=== PATIENT | male | born 1990 ===

== ENCOUNTER 2016-09-18 13:42 | Emergency (ER) | payer OTHER ==
[2016-09-18 14:01] VITALS: BP 106/62
--- NOTE | 2016-09-18 14:12 | UC ---
Respiratory Complaint HPI - HPI Summary HPI Summary: cough x 2 weeks with green sputum chest congestion, no nasal congestion , no pnd no fever, no chills, + wheezing , - History of Current Complaint Chief Complaint: UCRespiratory Stated Complaint: SEVERE COUGH Time Seen by Provider: 09/18/16 14:02 Hx Obtained From: Patient Onset/Duration: Gradual Onset, Lasting Weeks - 2, Still Present Timing: Constant Severity Initially: Moderate Severity Currently: Moderate Character: Cough: Productive - green sputum Aggravating Factors: Exertion, Deep Breaths Alleviating Factors: Nothing Associated Signs And Symptoms: Positive: Dyspnea, Wheezing, URI. Negative: Fever, Chills, Pleuritic Chest Pain, Hemoptysis, Dizziness, Calf Pain, Calf Swelling, Nasal Congestion, Sinus Discomfort - Allergies/Home Medications Allergies/Adverse Reactions: Allergies Allergy/AdvReac Type Severity Reaction Status Date / Time No Known Allergies Allergy Verified 09/18/16 14:00 Home Medications: Home Medications Gabapentin CAP(*) [Neurontin 400 mg CAP(*)] 400 mg PO TID 09/18/16 [History Confirmed 09/18/16] OLANzapine TAB* [Zyprexa 2.5 MG TAB*] 2.5 mg PO DAILY 09/18/16 [History Confirmed 09/18/16] Oxcarbazepine [Trileptal 300 mg tab] 300 mg PO BID 09/18/16 [History Confirmed 09/18/16] PMH/Surg Hx/FS Hx/Imm Hx Respiratory History: Asthma - Surgical History Surgical History: Yes Surgery Procedure, Year, and Place: scrotal surgery - Family History Known Family History: Negative: Diabetes - Social History Alcohol Use: Occasionally Substance Use Type: None Smoking Status (MU): Never Smoked Tobacco Type: Cigarettes Amount Used/How Often: 1 ppd Review of Systems Constitutional: Negative Skin: Negative Eyes: Negative ENT: Negative Respiratory: Shortness Of Breath, Cough Cardiovascular: Negative Gastrointestinal: Negative All Other Systems Reviewed And Are Negative: Yes Physical Exam Triage Information Reviewed: Yes Appearance: Well-Appearing, No Pain Distress, Well-Nourished Vital Signs: Initial Vital Signs Temp 98 F 09/18/16 13:53 Pulse 98 09/18/16 13:53 Resp 18 09/18/16 13:53 BP 106/62 09/18/16 13:53 Pulse Ox 98 09/18/16 13:53 Vital Signs Reviewed: Yes Eyes: Positive: Conjunctiva Clear ENT: Positive: Normal ENT inspection, Hearing grossly normal, Pharynx normal Neck: Positive: Supple, Nontender, No Lymphadenopathy Respiratory: Positive: Chest non-tender, No respiratory distress, Wheezing. Negative: Decreased breath sounds, Accessory muscle use, Crackles, Rhonchi, Stridor, Expiration, Inspiration Cardiovascular: Positive: RRR, No Murmur, Pulses Normal Abdominal Exam: Normal UC Diagnostic Evaluation - Laboratory O2 Sat by Pulse Oximetry: 98 Respiratory Course/Dx - Differential Dx/Diagnosis Provider Diagnoses: Asthmatic Bronchitis Discharge - Discharge Plan Condition: Stable Disposition: HOME Prescriptions: Albuterol HFA INHALER* [Ventolin HFA Inhaler*] 1 puff INH Q4H PRN #1 mdi PRN Reason: Wheezing Benzonatate CAP* [Tessalon 100 MG CAP*] 100 mg PO TID PRN #21 cap PRN Reason: Cough Guaifenesin-Codeine [Cheratussin AC] 10 syp PO BEDTIME #120 ml MDD 10 ml Patient Education Materials: Acute Bronchitis (ED) Referrals: No Primary Care Phys,NOPCP [Primary Care Provider] - 7 Days
--- NOTE | 2016-09-18 14:41 | RAD ---
HISTORY: Cough COMPARISONS: None relevant available time dictation VIEWS: 4: Frontal dual-energy and lateral views of the chest. FINDINGS: CARDIOMEDIASTINAL SILHOUETTE: The cardiomediastinal silhouette is normal. BRINDA: The brinda are normal. PLEURA: The costophrenic angles are sharp. No pleural abnormalities are noted. LUNG PARENCHYMA: There is patchy alveolar opacification of the lingula. ABDOMEN: The upper abdomen is clear. There is no subphrenic gas. BONES AND SOFT TISSUES: No bone or soft tissue abnormalities are noted. OTHER: None. IMPRESSION: PATCHY LINGULAR CONSOLIDATION. RECOMMEND FOLLOW-UP UNTIL RESOLUTION TO EXCLUDE UNDERLYING PULMONARY PARENCHYMAL PATHOLOGY.
== END 2016-09-18 14:31 | disposition home or self-care (01) ==
LOC: EDSEX 13:42 → UCCORT 13:42
DX: J45.909 Unspecified asthma, uncomplicated (principal)
CPT/HCPCS: 71020; 99212; G0463